=== PATIENT | male | born 1940 | race Caucasian/White ===

== ENCOUNTER 2023-11-13 07:53 | Day surgery (SDC) | payer MEDICARE ==
[2023-11-12 09:54] LABS: Basophils # (auto) 0.2 10 ^3/uL (0-0.2); Eosinophils # (auto) 0.2 10 ^3/uL (0-0.8); Eosinophils % (auto) 1.5 % (0.0-7.0); Hematocrit 20.6 % (41.0-53.0); Lymphocytes # (auto) 2.7 10 ^3/uL (0.4-5.4); Lymphocytes % (auto) 17.8 % (10.0-50.0); Mean Corpuscular Hemoglobin 34.4 pg (28.0-32.0); Mean Corpuscular Hgb Conc. 32.9 g/dL (32.0-36.0); Mean Corpuscular Volume 104.4 fL (80.0-100.0); Monocytes # (auto) 2.3 10 ^3/uL (0-1.3); Monocytes % (auto) 15.2 % (0.0-12.0); Neutrophils # (auto) 9.8 10 ^3/uL (1.6-8.6); Neutrophils % (auto) 64.5 % (37.0-80.0); Nucleated Red Blood Cells % 0.3 %; Platelet Count (auto) 293 10^3/uL (140-450); Red Blood Cells 1.98 10^6/uL (4.5-5.90); White Blood Cell 15.3 10^3/uL (4.4-10.8)
[2023-11-12 10:41] LABS: Platelet Estimate Adequate
[2023-11-12 10:42] LABS: Ovalocytes FEW; Stomatocytes Few
[2023-11-12 13:51] LABS: Hemoglobin 6.8 g/dL (13.5-17.5)
[~2023-11-13] VITALS: Ht 172.7 cm; Wt 59.0 kg
[2023-11-13] VITALS (12 sets, daily range): BP systolic 122–166; BP diastolic 66–87; PULSE 67–79; RESP 12–20; TEMP 97.8–98.2
[~2023-11-13 07:53] MED LIST: ACET500T58 PO; ALPR0.254 PO; AMLO1TAB21 PO; ANAG0.5C2 PO; ASCO500T11 PO; CETI10CA PO; CHOL20007 PO; DICL1GEL73 TD; ESCI5TAB PO; FAMO-161 PO; LOPE2CAP16 PO; LOVA20TA4 PO; MULT-733 PO; OMEP-434 PO; POM PO; PROP1TAB51 PO; PUMP1CAP PO; VITA400T4 PO; VITACAP PO; ZINC50TA7 PO
== END 2023-11-13 14:00 | disposition home or self-care (01) ==
LOC: CATH 07:53
PROVIDERS: ATTEND Internal Medicine
DX: D64.9 Anemia, unspecified (principal)
CPT/HCPCS: 36415; 36430; 85025; 86850; 86900; 86901; 86920; J7030; P9016